=== PATIENT | female | born 1950 | race Caucasian/White ===

== ENCOUNTER 2019-04-08 11:45 | Emergency (ER) | payer OTHER, MEDICARE ==
[2019-04-08] MEDS ORDERED: Acetaminophen 500 MG Tab PO ONE (12:13)
--- NOTE | 2019-04-08 12:16 | EDM.PDOC ---
ED HPI GENERAL MEDICAL PROBLEM - General Chief Complaint: Skin Complaint Stated Complaint: RIGHT CALF PAIN Time Seen by Provider: 04/08/19 11:54 Source of Information: Reports: Patient History Limitations: Reports: No Limitations - History of Present Illness INITIAL COMMENTS - FREE TEXT/NARRATIVE: states she has had a chronic "sore" to her right lower leg; the scab came off; she placed a bandaid on it; she has been swimming. Noticed today that the area is red, swollen and tender and she has a fever. Denies nausea or vomiting; no diarrhea. Is a diabetic on insulin; blood sugars running in the 120's. Location: Reports: Lower Extremity, Right Quality: Reports: Throbbing Severity: Moderate Improves with: Reports: None Worsens with: Reports: None Associated Symptoms: Reports: Fever/Chills Right Lower Anterior Leg Pain Score (Numeric/FACES): 4 - Related Data Allergies Allergy/AdvReac Type Severity Reaction Status Date / Time Iodinated Contrast- Oral and Allergy Swollen Verified 04/08/19 12:37 IV Dye Eyes ED ROS GENERAL - Review of Systems Review Of Systems: See Below Constitutional: Reports: Fever, Chills Respiratory: Reports: No Symptoms Cardiovascular: Reports: No Symptoms GI/Abdominal: Reports: No Symptoms Musculoskeletal: Reports: No Symptoms Skin: Reports: Wound, Other (erythema, swelling, no discharge) Psychiatric: Reports: No Symptoms ED EXAM, SKIN/RASH Exam: See Below Exam Limited By: No Limitations General Appearance: Alert, WD/WN, No Apparent Distress Head: Atraumatic, Normocephalic Neck: Normal Inspection, Supple, Full Range of Motion Respiratory/Chest: No Respiratory Distress, Lungs Clear, Normal Breath Sounds Cardiovascular: Normal Peripheral Pulses, Regular Rate, Rhythm Peripheral Pulses: 4+: Posterior Tibial (L), Posterior Tibial (R), Dorsalis Pedis (L), Dorsalis Pedis (R) GI/Abdominal: Normal Bowel Sounds, Non-Tender Extremities: Leg Pain, Increased Warmth, Redness, Other (swelling, tender with palpation) Neurological: Alert, Oriented, CN II-XII Intact, Normal Cognition Skin: Warm, Dry, Wound/Incision (dime size, right anterior lower leg, no discharge; warm, tender with palpation, no streaking. ) Location, Skin: Lower Extremity, Right Associated features: Warmth, Tenderness, Swelling Course - Vital Signs Last Recorded V/S: Last Vital Signs Temp 101.1 F H 04/08/19 12:36 Pulse 96 04/08/19 12:36 Resp 19 04/08/19 12:36 BP 174/72 H 04/08/19 12:36 Pulse Ox 97 04/08/19 12:36 - Orders/Labs/Meds Meds: Medications Discontinued Medications Generic Name Dose Route Start Last Admin Trade Name Angelina PRN Reason Stop Dose Admin Acetaminophen 1,000 mg 04/08/19 12:13 04/08/19 12:40 Tylenol Extra Strength PO 04/08/19 12:14 1,000 mg ONETIME ONE Administration Departure - Departure Time of Disposition: 12:12 Disposition: Home, Self-Care 01 Condition: Fair Clinical Impression: Cellulitis of right lower leg, Cellulitis - Discharge Information *PRESCRIPTION DRUG MONITORING PROGRAM REVIEWED*: Not Applicable *COPY OF PRESCRIPTION DRUG MONITORING REPORT IN PATIENT RAOM: Not Applicable Instructions: Cellulitis, Adult Referrals: PCP,None [Primary Care Provider] - Forms: ED Department Discharge Additional Instructions: Cool compress to the affected limb Elevate Drink plenty of water Tylenol for fever Take complete course of antibiotic Follow up on Wednesday with your doctor or ER if not improving. - Problem List & Annotations (1) Cellulitis of right lower leg SNOMED Code(s): 369547425 Code(s): L03.115 - CELLULITIS OF RIGHT LOWER LIMB Status: Acute Priority : Medium - Problem List Review Problem List Initiated/Reviewed/Updated: Yes
== END 2019-04-08 12:42 | disposition home or self-care (01) ==
LOC: JP.ED 11:45
DX: L03.115 Cellulitis of right lower limb (principal); Z91.041 Radiographic dye allergy status
CPT/HCPCS: 99283; A9270